=== PATIENT | male | born 1980 | race Caucasian/White ===

== ENCOUNTER 2023-02-05 19:58 | Emergency (ER) | payer MEDICAID, OTHER ==
[~2023-02-05] VITALS: Ht 167.7 cm; Wt 80.0 kg
[2023-02-05 20:08] VITALS: BP 161/112
--- NOTE | 2023-02-05 21:18 | ED General ---
General Chief Complaint: Cardiac/General Problems Stated Complaint: RINGING IN EAR, HIGH BP Nursing Triage Note: Pt presents with c/o dizziness and ringing in ears for past week. He reports hx of kidney problems and was supposed to be on blood pressure medicine, but has not taken for past 4 or5 years. Pt denies pain and shortness of breath. Source of Information: Patient Exam Limitations: No Limitations History of Present Illness Date Seen by Provider: Feb 05, 2023 Time Seen by Provider: 22:01 Initial Comments This 42-year-old gentleman presents to the emergency room with complaints of ringing in his ears, a sensation of intoxication described as disorientation and disequilibrium, dizziness, and hypertension. He states it feels like "I am drunk.". He has not had any alcohol in over a month. Symptoms have been present for about a week. He demonstrates no focal neurologic deficits. He has a history of hypertension but has not taken any medication for it in several years. He simply has not followed up with any primary care providers. He had been taking energy drinks but stopped that January 10. He does admit to excessive salt consumption. He denies any illicit drug use. He chews tobacco but does not smoke. He reports history of stage III renal failure and he does not know what the status of that is presently. Allergies and Home Medications Allergies Coded Allergies: No Known Drug Allergies (Unverified , 02/05/23) Patient Home Medication List Home Medication List Reviewed: Yes Amlodipine Besylate (Norvasc) 5 Mg Tablet, 5 MG PO DAILY Prescribed by: YRIS BRITO on 02/06/23 0003 Review of Systems Review of Systems Constitutional: see HPI EENTM: see HPI, other (Ringing in the ears, blurry vision in right eye since head trauma over a year ago) Respiratory: no symptoms reported Cardiovascular: see HPI Gastrointestinal: no symptoms reported Genitourinary: see HPI Musculoskeletal: no symptoms reported Skin: no symptoms reported Psychiatric/Neurological: See HPI Hematologic/Lymphatic: No Symptoms Reported Immunological/Allergic: no symptoms reported Past Edyfdzo-Tvubwq-Ifzpkm Hx Patient Social History Tobacco Use?: No Smokeless Tobacco Frequency: Current Everyday User Use of E-Cig and/or Vaping dev: No Substance use?: No Alcohol Use?: Yes Alcohol Frequency: Rarely Past Medical History Surgeries: Yes Renal (Renal biopsy) Respiratory: No Cardiac: Yes Hypertension Neurological: Yes (Head trauma) Genitourinary: Yes Renal Failure (Stage III chronic kidney disease) Gastrointestinal: No Musculoskeletal: No HEENT: Yes (Blurry vision in right eye since head trauma) Cancer: No Psychosocial: No Integumentary: No Physical Exam Vital Signs Vital Signs - First Documented 02/05/23 20:08 Temp 36.7 Pulse 97 Resp 16 B/P (MAP) 161/112 (128) Capillary Refill : Less Than 3 Seconds Height, Weight, BMI Height: '" Weight: lbs. oz. kg; 28.00 BMI Method: General Appearance: No Apparent Distress, WD/WN HEENT: PERRL/EOMI, TMs Normal, Normal ENT Inspection, Pharynx Normal Neck: Normal Inspection; No Carotid Bruit, No JVD Respiratory: Lungs Clear, Normal Breath Sounds, No Accessory Muscle Use Cardiovascular: Regular Rate, Rhythm, No Edema, No Murmur Gastrointestinal: Non Tender, Soft; No Distended Extremity: Normal Inspection, No Pedal Edema Neurologic/Psychiatric: Alert, Oriented x3, No Motor/Sensory Deficits, Normal Mood/Affect, Abnormal independent marketing consultant II-XII (Chronic and unchanged blurry vision in the right eye after head trauma over a year ago), Other (No focal neurologic deficits on gross exam. Normal gait. Normal fjzivx-jo-zelz and yrik-zi-xgax.) Progress/Results/Core Measures Suspected Sepsis SIRS Temperature: Pulse: 97 Respiratory Rate: 16 Laboratory Tests 02/05/23 22:15: White Blood Count 7.6 Blood Pressure 161 /112 Mean: 128 Laboratory Tests 02/05/23 22:15: Creatinine 3.72H, Platelet Count 228, Total Bilirubin < 0.2 Results/Orders Lab Results Laboratory Tests Test 02/05/23 22:15 Range/Units White Blood Count 7.6 4.3-11.0 10^3/uL Red Blood Count 3.88 L 4.30-5.52 10^6/uL Hemoglobin 11.4 L 13.3-17.7 g/dL Hematocrit 35 L 40-54 % Mean Corpuscular Volume 90 80-99 fL Mean Corpuscular Hemoglobin 29 25-34 pg Mean Corpuscular Hemoglobin Concent 33 32-36 g/dL Red Cell Distribution Width 13.8 10.0-14.5 % Platelet Count 228 130-400 10^3/uL Mean Platelet Volume 8.7 L 9.0-12.2 fL Immature Granulocyte % (Auto) 0 % Neutrophils (%) (Auto) 55 42-75 % Lymphocytes (%) (Auto) 33 12-44 % Monocytes (%) (Auto) 8 0-12 % Eosinophils (%) (Auto) 4 0-10 % Basophils (%) (Auto) 1 0-10 % Neutrophils # (Auto) 4.2 1.8-7.8 10^3/uL Lymphocytes # (Auto) 2.5 1.0-4.0 10^3/uL Monocytes # (Auto) 0.6 0.0-1.0 10^3/uL Eosinophils # (Auto) 0.3 0.0-0.3 10^3/uL Basophils # (Auto) 0.1 0.0-0.1 10^3/uL Immature Granulocyte # (Auto) 0.0 0.0-0.1 10^3/uL Sodium Level 145 135-145 MMOL/L Potassium Level 5.0 3.6-5.0 MMOL/L Chloride Level 111 H 98-107 MMOL/L Carbon Dioxide Level 24 21-32 MMOL/L Anion Gap 10 5-14 MMOL/L Blood Urea Nitrogen 49 H 7-18 MG/DL Creatinine 3.72 H 0.60-1.30 MG/DL Estimat Glomerular Filtration Rate 20 BUN/Creatinine Ratio 13 Glucose Level 96 70-105 MG/DL Calcium Level 9.4 8.5-10.1 MG/DL Corrected Calcium 9.5 8.5-10.1 MG/DL Magnesium Level 1.9 1.6-2.4 MG/DL Total Bilirubin < 0.2 0.1-1.0 MG/DL Aspartate Amino Transf (AST/SGOT) 26 5-34 U/L Alanine Aminotransferase (ALT/SGPT) 16 0-55 U/L Alkaline Phosphatase 39 L 40-136 U/L Total Protein 6.7 6.4-8.2 GM/DL Albumin 3.9 3.2-4.5 GM/DL My Orders Orders - YRIS WOLF MD Cbc With Automated Diff (02/05/23 22:01) Comprehensive Metabolic Panel (02/05/23 22:01) Magnesium (02/05/23 22:01) Ed Iv/Invasive Line Start (02/05/23 22:01) Ekg Tracing (02/05/23 22:01) Monitor-Rhythm Ecg Trace Only (02/05/23 22:01) Ns Iv 1000 Ml (Sodium Chloride 0.9%) (02/05/23 23:00) Ct Head Wo (02/05/23 22:57) Amlodipine Tablet (Norvasc Tablet) (02/06/23 00:00) Medications Given in ED Vital Signs/I&O 02/05/23 20:08 Temp 36.7 Pulse 97 Resp 16 B/P (MAP) 161/112 (128) Capillary Refill : Less Than 3 Seconds Blood Pressure Mean: 128 Progress Note : Progress Note Basic labs were reviewed including CBC and CMP. There was significant elevation in creatinine. His renal failure is now at stage IV according to his labs today by my interpretation. Patient was hydrated with a liter of IV fluid. We are starting treatment of hypertension with Norvasc. I very strongly recommended the patient be seen again within the next week, preferably by primary care provider. His renal function and blood pressure need to be monitored closely. A prescription for Norvasc was provided. He was advised to return to the emergency room within 1 week for repeat labs and a blood pressure check if he is not able to get into a primary care provider. See discharge instructions for further discussion. CT of the head was obtained to rule out any intracranial spencer bacute infarct, mass, bleed, etc. that could contribute to his symptoms. The [facility] report was negative. ECG Initial ECG Impression Date: Feb 05, 2023 Initial ECG Impression Time: 20:18 Initial ECG Rate: 90 Comment Sinus rhythm with variable rate with no ST elevation or depression. No abnormal intervals or axis deviation. Diagnostic Imaging Diagonstic Imaging: CT Plain Films/CT/US/NM/MRI: head Comments [facility] CT report of the head was reviewed. There were no acute abnormalities appreciated to attribute his symptoms to. Departure Impression Primary Impression: Renal failure Qualified Codes: N18.4 - Chronic kidney disease, stage 4 (severe) Additional Impressions: Dizziness Hypertension Qualified Codes: I10 - Essential (primary) hypertension Disposition: HOME, SELF-CARE Condition: Stable Departure-Patient Inst. Decision time for Depature: 23:58 Referrals: NO,LOCAL PHYSICIAN (PCP/Family) Primary Care Physician Patient Instructions: High Blood Pressure ED, Kidney Failure Add. Discharge Instructions: Drink plenty of water and limit caffeinated beverages. Avoid excessive salt. Avoid stimulants that may increase your blood pressure such as nicotine, caffeine, energy drinks, diet pills, workout supplements, medications for ADHD, decongestants, etc. It is critically important that you establish with a primary care provider as soon as possible. You should be seen within 1 week and have repeat labs performed and your blood pressure checked. If you are unable to get in with a primary care provider within 1 week, return to the emergency room for repeat ev aluation. Return to the emergency room if you have worsening symptoms despite following these instructions. All discharge instructions reviewed with patient and/or family. Voiced understanding. Scripts Amlodipine Besylate (Norvasc) 5 Mg Tablet 5 MG PO DAILY, #30 TAB Prov: YRIS WOLF MD 02/06/23 YRIS WOLF MD Feb 05, 2023 21:18
[2023-02-05 22:24] LABS: BASOPHILS # (AUTO) 0.1 10^3/uL (0.0-0.1); BASOPHILS % (AUTO) 1 % (0-10); EOSINOPHILS # (AUTO) 0.3 10^3/uL (0.0-0.3); EOSINOPHILS % (AUTO) 4 % (0-10); HEMATOCRIT 35 % (40-54); HEMOGLOBIN 11.4 g/dL (13.3-17.7); LYMPHOCYTES # (AUTO) 2.5 10^3/uL (1.0-4.0); LYMPHOCYTES % (AUTO) 33 % (12-44); MEAN CORPUSCULAR HEMOGLOBIN 29 pg (25-34); MEAN CORPUSCULAR HGB CONC 33 g/dL (32-36); MEAN CORPUSCULAR VOLUME 90 fL (80-99); MEAN PLATELET VOLUME 8.7 fL (9.0-12.2); MONOCYTES # (AUTO) 0.6 10^3/uL (0.0-1.0); MONOCYTES % (AUTO) 8 % (0-12); NEUTROPHILS # (AUTO) 4.2 10^3/uL (1.8-7.8); NEUTROPHILS % (AUTO) 55 % (42-75); PLATELET COUNT 228 10^3/uL (130-400); WHITE BLOOD COUNT 7.6 10^3/uL (4.3-11.0)
[2023-02-05 22:46] LABS: BUN/CREATININE RATIO 13; CARBON DIOXIDE 24 MMOL/L (21-32); CHLORIDE 111 MMOL/L (98-107); CREATININE SERUM 3.72 MG/DL (0.60-1.30); GFR ESTIMATED 20; SODIUM 145 MMOL/L (135-145)
[2023-02-05 22:47] LABS: ALANINE AMINOTRANSFERASE 16 U/L (0-55); ALBUMIN 3.9 GM/DL (3.2-4.5); ALKALINE PHOSPHATASE 39 U/L (40-136); BILIRUBIN,TOTAL < 0.2 MG/DL (0.1-1.0); CALCIUM 9.4 MG/DL (8.5-10.1); GLUCOSE 96 MG/DL (70-105); MAGNESIUM 1.9 MG/DL (1.6-2.4); TOTAL PROTEIN 6.7 GM/DL (6.4-8.2)
[2023-02-05] MEDS ORDERED: NS IV 1000 ML 1,000 ML IV ONE (23:00)
[2023-02-06] MEDS ORDERED: amLODIPine 5 MG (NORVASC) TAB PO ONE
[2023-02-06] MEDS ORDERED: AMLO5TAB4 PO (00:03)
--- NOTE | 2023-02-07 08:29 | Diagnostic Imaging Report ---
PROCEDURE: CT head without contrast. TECHNIQUE: Multiple contiguous axial images were obtained through the brain without the use of intravenous contrast. Auto Exposure Controls were utilized during the CT exam to meet ALARA standards for radiation dose reduction. INDICATION: Hypertensive patient with disequilibrium and ringing in the ears. I have no priors. There is no intracranial hemorrhage, hydrocephalus, cerebral edema, mass, mass effect or evidence for elevated intracranial pressures. Mastoid air cells and middle ear cavities unremarkable. The paranasal sinuses, orbits and calvarium nonacute. IMPRESSION: Unremarkable CT head Dictated by: Dictated on workstation # [id number]
== END 2023-02-06 00:10 | disposition home or self-care (01) ==
LOC: ER FS 20:00
DX: I12.9 Hypertensive chronic kidney disease with stage 1 through stage 4 chronic kidney disease, or unspecified chronic kidney disease (principal); N18.9 Chronic kidney disease, unspecified; Z28.311 Partially vaccinated for COVID-19
CPT/HCPCS: 36415; 70450; 80053; 83735; 85025; 93005; 93041

== ENCOUNTER 2023-03-18 20:55 | Emergency (ER) | payer MEDICAID ==
[~2023-03-18] VITALS: Ht 170.1 cm; Wt 77.9 kg
[~2023-03-18 20:55] MED LIST: AMLO5TAB4 PO
--- NOTE | 2023-03-18 21:00 | ED Upper Extremity ---
General Stated Complaint: R HAND PAIN History of Present Illness Date Seen by Provider: March 18, 2023 Time Seen by Provider: 21:00 Initial Comments 42 yr M is here with c/o right finger swelling which began today morning. Pt thinks he had a baby copperhead snake bite on Friday around 15:00 pm. Pt stated he was moving a board and he felt a mild stinging pain and later saw the baby copperhead sitting there. Pt has not had any symptoms excpet that today his right middle fingers and knuckles started to swell, and is hot to touch. Denies any other symptoms. Denies fever and chills, hematuria, chest pain, palpitations, SOB, nausea and vomiting, abdominal pain, diarrhea. Patient did not have any injuries, trauma, falls. Allergies and Home Medications Allergies Coded Allergies: No Known Drug Allergies (Unverified , 02/05/23) Patient Home Medication List Home Medication List Reviewed: Yes Amlodipine Besylate (Norvasc) 5 Mg Tablet, 5 MG PO DAILY Prescribed by: YRIS BRITO on 02/06/23 0003 Review of Systems Constitutional: no symptoms reported EENTM: no symptoms reported Respiratory: no symptoms reported Cardiovascular: no symptoms reported Gastrointestinal: no symptoms reported Genitourinary: no symptoms reported Musculoskeletal: no symptoms reported Skin: change in color Psychiatric/Neurological: No Symptoms Reported Past Kvmjzel-Cjqpxw-Mrihuv Hx Past Medical History Surgeries: Yes Renal Respiratory: No Cardiac: Yes Hypertension Neurological: Yes (Head trauma) Genitourinary: Yes Renal Failure Gastrointestinal: No Musculoskeletal: No HEENT: Yes (Blurry vision in right eye since head trauma) Cancer: No Psychosocial: No Integumentary: No Physical Exam Vital Signs Vital Signs - First Documented 03/18/23 21:00 Temp 36.8 Pulse 86 Resp 16 B/P (MAP) 139/95 (110) Pulse Ox 100 O2 Delivery Room Air Capillary Refill : Height, Weight, BMI Height: '" Weight: lbs. oz. kg; 28.00 BMI Method: General Appearance: WD/WN, no apparent distress HEENT: PERRL/EOMI Neck: non-tender, full range of motion, supple, normal inspection Cardiovascular: regular rate, rhythm, no edema Respiratory: chest non-tender, lungs clear, normal breath sounds, no respiratory distress Gastrointestinal: non tender, soft Back: normal inspection, no CVA tenderness Hand: normal ROM (Mild difficulty in flexion of the finger due to the swell ing), Right, soft tissue tenderness, swelling (Warm to touch, N/V bundle intact, erythema, of right middle finger and second third and fourth MCP joints) Neurologic/Tendon: normal sensation, normal motor functions Neurologic/Psychiatric: no motor/sensory deficits, alert, oriented x 3 Lymphatic: no adenopathy Progress/Results/Core Measures Results/Orders Lab Results Laboratory Tests Test 03/18/23 21:21 Range/Units White Blood Count 8.7 4.3-11.0 10^3/uL Red Blood Count 3.55 L 4.30-5.52 10^6/uL Hemoglobin 10.7 L 13.3-17.7 g/dL Hematocrit 32 L 40-54 % Mean Corpuscular Volume 90 80-99 fL Mean Corpuscular Hemoglobin 30 25-34 pg Mean Corpuscular Hemoglobin Concent 34 32-36 g/dL Red Cell Distribution Width 13.7 10.0-14.5 % Platelet Count 225 130-400 10^3/uL Mean Platelet Volume 8.6 L 9.0-12.2 fL Immature Granulocyte % (Auto) 0 % Neutrophils (%) (Auto) 62 42-75 % Lymphocytes (%) (Auto) 28 12-44 % Monocytes (%) (Auto) 8 0-12 % Eosinophils (%) (Auto) 1 0-10 % Basophils (%) (Auto) 1 0-10 % Neutrophils # (Auto) 5.4 1.8-7.8 10^3/uL Lymphocytes # (Auto) 2.4 1.0-4.0 10^3/uL Monocytes # (Auto) 0.7 0.0-1.0 10^3/uL Eosinophils # (Auto) 0.1 0.0-0.3 10^3/uL Basophils # (Auto) 0.1 0.0-0.1 10^3/uL Immature Granulocyte # (Auto) 0.0 0.0-0.1 10^3/uL Prothrombin Time 12.8 12.2-14.7 SEC INR Comment 0.9 0.8-1.4 Activated Partial Thromboplast Time 28 24-35 SEC My Orders Orders - JAMEE RAMIREZ MD Dipht,Pertuss(Acell),Tet Adult (Boostrix (03/18/23 21:15) Cbc With Automated Diff (03/18/23 21:14) Comprehensive Metabolic Panel (03/18/23 21:14) Protime With Inr (03/18/23 21:14) Partial Thromboplastin Time (03/18/23 21:14) Medications Given in ED Current Medications Medications Dose Ordered Sig/Valentina Route Start Time Stop Time Status Last Admin Dose Admin Diphtheria/ Tetanus/Acell Pertussis 0.5 ml ONCE ONCE IM 03/18/23 21:15 03/18/23 21:16 DC 03/18/23 21:33 0.5 ML Vital Signs/I&O 03/18/23 21:00 Temp 36.8 Pulse 86 Resp 16 B/P (MAP) 139/95 (110) Pulse Ox 100 O2 Delivery Room Air Progress Progress Note : Progress Note 1. RIGHT HAND CELLULITIS: - CBC: WBC is normal, normal Hb and platelets - CMP: creatinine is elevated at 3.82, but this is his baseline as he had an elevated creatinine on February 05 to due to his PMH of renal failure - Coag profile is normal - vitals stable and normal BP in ER, asymptomatic, afebrile. - Tdap STAT in ER - Prescription for Augmentin 875mg bid for 7 days, first tab given in ER - Advised to stay well hydrated with at least 8 glasses of water a day - Follow up with PCP within 3 to 5 days - Although pt thinks it is a snake bite, there are NO puncture wounds to his hand and pt is 53 hours out since the bite and is stable and asymptomatic with unremarkable labs. Swelling appears more like an insect or spider bite. Will not be giving anti-venom at this time. -The patient was seen in the ED, and treated appropriately to presentation at a specific point in time. Patient is informed that there is a possibility that disease and illness can evolve and change in acuity rapidly or slowly after patient is discharged from the ER. Precautionary advice given to the patient for immediate return to ER if symptoms worsen or do not resolve, and to seek emergency care sooner rather than later. Pt also advised on the importance of PCP follow up and compliance with management and follow up plan with PCP and/or specialist, as this is part of the management plan. Pt verbally expressed understanding. Departure Impression Primary Impression: Cellulitis of finger of right hand Disposition: HOME, SELF-CARE Condition: Stable Departure-Patient Inst. Referrals: NO,LOCAL PHYSICIAN (PCP/Family) Primary Care Physician Patient Instructions: Cellulitis (Skin Infection), Adult (DC), Cellulitis (Skin Infection), Adult ED, Snake Bite Add. Discharge Instructions: - Prescription for Augmentin 875mg bid for 7 days, first tab given in ER - Advised to stay well hydrated with at least 8 glasses of water a day - Follow up with PCP within 3 to 5 days - Although pt thinks it is a snake bite, there are NO puncture wounds to his hand and pt is 53 hours out since the bite and is stable and asymptomatic with unremarkable labs. Swelling appears more like an insect or spider bite. Will not be giving anti-venom at this time. Scripts Amoxicillin/Potassium Clav (Amox Tr-K Clv 875-125 mg Tab) 875 Mg-125 Mg Tablet 1 EACH PO BID for 7 Days, #14 TAB Prov: JAMEE RAMIREZ MD 03/18/23 JAMEE RAMIREZ MD March 18, 2023 21:00
[2023-03-18] MEDS ORDERED: TETANUS,DIPTH,PERTUSS P/F (BOOSTRIX) 0.5 ML VIAL IM ONE (21:15)
[2023-03-18 21:22] LABS: BASOPHILS # (AUTO) 0.1 10^3/uL (0.0-0.1); BASOPHILS % (AUTO) 1 % (0-10); EOSINOPHILS # (AUTO) 0.1 10^3/uL (0.0-0.3); EOSINOPHILS % (AUTO) 1 % (0-10); HEMATOCRIT 32 % (40-54); HEMOGLOBIN 10.7 g/dL (13.3-17.7); LYMPHOCYTES # (AUTO) 2.4 10^3/uL (1.0-4.0); LYMPHOCYTES % (AUTO) 28 % (12-44); MEAN CORPUSCULAR HEMOGLOBIN 30 pg (25-34); MEAN CORPUSCULAR HGB CONC 34 g/dL (32-36); MEAN CORPUSCULAR VOLUME 90 fL (80-99); MEAN PLATELET VOLUME 8.6 fL (9.0-12.2); MONOCYTES # (AUTO) 0.7 10^3/uL (0.0-1.0); MONOCYTES % (AUTO) 8 % (0-12); NEUTROPHILS # (AUTO) 5.4 10^3/uL (1.8-7.8); NEUTROPHILS % (AUTO) 62 % (42-75); PLATELET COUNT 225 10^3/uL (130-400); WHITE BLOOD COUNT 8.7 10^3/uL (4.3-11.0)
[2023-03-18 21:40] LABS: INR 0.9 (0.8-1.4); PROTHROMBIN TIME PATIENT 12.8 SEC (12.2-14.7)
[2023-03-18 21:45] LABS: POTASSIUM 4.5 MMOL/L (3.6-5.0)
[2023-03-18 21:46] LABS: ALBUMIN 3.4 GM/DL (3.2-4.5); BILIRUBIN,TOTAL 0.2 MG/DL (0.1-1.0); CALCIUM 8.6 MG/DL (8.5-10.1); CREATININE SERUM 3.82 MG/DL (0.60-1.30); TOTAL PROTEIN 5.7 GM/DL (6.4-8.2)
[2023-03-18] MEDS ORDERED: AUGMENTIN 875 MG TAB (AMOXICILLIN/CLAVULANATE) PO STA (22:10)
[2023-03-18] MEDS ORDERED: AMOX1TAB12 PO (22:14)
[2023-03-18] MEDS ORDERED: AUGMENTIN 875 MG TAB (AMOXICILLIN/CLAVULANATE) ONE (22:17)
[2023-03-18 22:28] VITALS: BP 142/99
== END 2023-03-18 22:28 | disposition home or self-care (01) ==
LOC: EDUNIT# 20:55 → ER FS 20:56
DX: L03.011 Cellulitis of right finger (principal); Z23 Encounter for immunization
CPT/HCPCS: 36415; 80053; 85025; 85610; 85730; 90715